=== PATIENT | female | born 1980 | race Two or more races ===

== ENCOUNTER 2018-07-05 12:58 | Emergency (ER) | payer MEDICAID ==
[~2018-07-05] VITALS: Ht 157.5 cm; Wt 78.9 kg
[2018-07-05] MEDS ORDERED: SODIUM CHLORIDE 0.9% 1,000 ML IVB ONE (13:55)
[2018-07-05 14:03] LABS: Basophils # (auto) 0.1 uL; Eosinophils # (auto) 0.1 uL; Eosinophils % (auto) 1.5 % (0.0-7.0); Hematocrit 39.5 % (36.0-46.0); Hemoglobin 13.2 g/dL (12.2-16.2); Lymphocytes # (auto) 1.6 uL; Lymphocytes % (auto) 30.2 % (10.0-50.0); Mean Corpuscular Hemoglobin 30.1 pg (28.0-32.0); Mean Corpuscular Hgb Conc. 33.5 g/dL (32.0-36.0); Mean Corpuscular Volume 90.1 fL (80.0-100.0); Monocytes # (auto) 0.4 uL; Monocytes % (auto) 7.5 % (0.0-12.0); Neutrophils # (auto) 3.2 uL; Neutrophils % (auto) 59.8 % (37.0-80.0); Platelet Count (auto) 153 10^3/uL (140-450); Red Blood Cells 4.38 10^6/uL (4.0-5.20); Red Cell Distribution Width 13.8 % (11.8-14.3); White Blood Cell 5.4 10^3/uL (4.4-10.8)
[2018-07-05 14:21] LABS: Urine Bacteria FEW /hpf (None Seen); Urine Blood 3+ /uL (Negative); Urine Mucus FEW (None Seen); Urine WBC 7 /hpf (0 - 5)
[2018-07-05 14:28] LABS: Albumin 3.8 g/dL (3.4-5.0); BUN/Creatinine Ratio 11.9; Calcium 8.6 mg/dL (8.5-10.1); Potassium 3.8 mmol/L (3.5-5.1)
[2018-07-05 14:30] LABS: Bilirubin, Total 0.6 mg/dL (0.2-1.0); Total Protein 7.4 g/dL (6.4-8.2)
[2018-07-05 14:31] LABS: INR 0.96 (0.9-1.15); Prothrombin Time 10.3 sec (9.27-12.13)
[2018-07-05 17:24] VITALS: BP 125/65
== END 2018-07-05 17:25 | disposition home or self-care (01) ==
LOC: ER 12:58
DX: O20.0 Threatened abortion (principal); O09.521 Supervision of elderly multigravida, first trimester; Z3A.01 Less than 8 weeks gestation of pregnancy
CPT/HCPCS: 36415; 76801; 76817; 80053; 81001; 81025; 84702; 85025; 85610; 85730; 86850; 86900; 86901

== ENCOUNTER 2021-11-11 04:01 | Emergency (ER) | payer MEDICAID ==
[~2021-11-11] VITALS: Ht 157.5 cm; Wt 68.0 kg
[2021-11-11 04:03] VITALS: BP 150/81
[2021-11-11] MEDS ORDERED: METHOCARBAMOL 500 MG TAB PO ONE (05:30)
[2021-11-11] MEDS ORDERED: KETOROLAC TROMETH 30 MG/ML 1ML VIAL IM ONE (05:30)
== END 2021-11-11 05:34 | disposition home or self-care (01) ==
LOC: ER 04:01
DX: M62.830 Muscle spasm of back (principal)
CPT/HCPCS: 96372; 99283; J1885